=== PATIENT | male | born 1955 | race Caucasian/White ===

== ENCOUNTER 2016-06-05 11:18 | Emergency (ER) | payer OTHER | END 2016-06-05 11:23 | disposition home or self-care (01) | LOC: CFTX 11:18 | DX: T15.01XA Foreign body in cornea, right eye, initial encounter (principal); I10 Essential (primary) hypertension; F17.210 Nicotine dependence, cigarettes, uncomplicated; W45.8XXA Other foreign body or object entering through skin, initial encounter | CPT/HCPCS: 99283 ==

== ENCOUNTER 2016-10-12 12:32 | Emergency (ER) | payer OTHER ==
[~2016-10-12] VITALS: Ht 165.1 cm; Wt 61.4 kg
== END 2016-10-12 13:45 | disposition home or self-care (01) ==
LOC: CED 12:32 → CFTX 12:32
DX: T15.11XA Foreign body in conjunctival sac, right eye, initial encounter (principal); Z23 Encounter for immunization; I10 Essential (primary) hypertension; J44.9 Chronic obstructive pulmonary disease, unspecified; F17.210 Nicotine dependence, cigarettes, uncomplicated; X58.XXXA Exposure to other specified factors, initial encounter
CPT/HCPCS: 65205; 90471; 90715; 99283